=== PATIENT | male | born 2000 ===

== ENCOUNTER 2018-05-03 17:41 | Emergency (ER) | payer SELFPAY ==
[2018-05-03 17:58] VITALS: BP 108/78
--- NOTE | 2018-05-03 18:06 | EDPHY ---
H & P Time Seen by Provider: 05/03/18 17:53 HPI/ROS: CHIEF COMPLAINT: Left great toe injury February HISTORY OF PRESENT ILLNESS: 18-year-old male sustained left great toe injury in February 2018, has been seen by clothing worker and had multiple x-rays performed and was waiting to be seen by an orthopedic surgeon however could not be seen prior to leaving for [place] for couple of weeks when he leaves in few days. He is in the ER requesting possibly different shoe than the postoperative shoe he has been wearing. Denies acute symptomatology. Denies paresthesia. Denies discoloration. Reproducible pain with ambulation. [ PHYSICAL EXAM (Prior to examination, patient consented to physical exam, hands were washed and my usual and customary physical exam procedures followed) 1) GENERAL: Well-developed, well-nourished, alert and oriented. Appears to be in no acute distress. 2) HEAD: Normocephalic 3) HEENT: Pupils equal, round, reactive to light bilaterally. 4) LUNGS: Breathing comfortably. 5) MUSCULOSKELETAL: Mild tenderness to palpation left 1st MTP with no discoloration. No overlying skin changes proximal tibia and fibula nontender .5th MT nontender negative [place] test, compartments soft 6) SKIN: Intact 7) VASCULAR: DP,PT pulses and cap refill present and brisk DIFFERENTIAL DIAGNOSIS: in no particular order including but not limited to fracture, sprain, compartment syndrome Smoking Status: Never smoked Constitutional: Initial Vital Signs Temperature (C) 36.9 C 05/03/18 17:57 Heart Rate 78 05/03/18 17:57 Respiratory Rate 18 05/03/18 17:57 Blood Pressure 108/78 05/03/18 17:57 O2 Sat (%) 98 05/03/18 17:57 O2 Delivery Mode Room Air Allergies/Adverse Reactions: No Known Allergies Allergy (Unverified 05/03/18 17:57) MDM/Departure - MDM ED Course/Re-evaluation: At this time I do not identify indication for emergent MRI or emergent orthopedic consultation. He is leaving for [place] in a few days. I have offered him a different postoperative shoe in the ER and offered referral to Dr. Antonio Gregory which he accepts. Given my usual and customary orthopedic precautions instructions. Care of patient under supervision of primary supervising physician Dr Etienne . - Depart Disposition: Home, Routine, Self-Care Clinical Impression: Injury of left great toe Condition: Good Instructions: Foot Contusion (ED) Additional Instructions: Return to the ER immediately if you experience discoloration, have worsening pain, numbness, tingling, or any other symptoms that concern you. If you received x-rays in the emergency department today, be advised, that ligamentous , tendon, muscular, and other non-bony injury cannot be fully ruled out. Try to keep your affected extremity elevated above the level of your chest, and keep cold packs on the affected area, for the next 48 hours. Adult Pain & Fever Control: We recommend Acetaminophen (Tylenol) and Ibuprofen (Motrin,Advil) for pain and fever control. When fever is high or pain severe, both drugs can be used at the same time, but at different intervals. Please note the time differences. Your dose is: Acetaminophen 650mg every 4 to 6 hours Ibuprofen 600mg every 6 hours with food OR Note: do not take Acetaminophen with Hydrocodone (Vicodin, Lortab) or Oycodone (Percocet). These medications also contain Acetaminophen. No more than 3000mg of Acetaminophen should be taken in 24 hours (for an adult). Referrals: Antonio Gregory MD [Medical Doctor] - 5-7 days, call for appt.
== END 2018-05-03 18:15 | disposition home or self-care (01) ==
DX: S99.922A Unspecified injury of left foot, initial encounter (principal); X58.XXXA Exposure to other specified factors, initial encounter; Y92.9 Unspecified place or not applicable; Y93.9 Activity, unspecified; Y99.9 Unspecified external cause status